=== PATIENT | male | born 1955 | race Caucasian/White ===

== ENCOUNTER 2018-07-18 10:51 | Day surgery (SDC) | payer MEDICARE, BC ==
[~2018-07-18] VITALS: Ht 177.8 cm; Wt 77.3 kg
[2018-07-18] MEDS ORDERED: SODIUM CHLORIDE 0.9% 1,000 ML IV ONE (11:30)
[2018-07-18] MEDS ORDERED: FURO20TA3 PO (11:38)
[2018-07-18] MEDS ORDERED: DILT240C55 PO (11:38)
[2018-07-18] MEDS ORDERED: HYDR-3342 PO (11:38)
[2018-07-18] MEDS ORDERED: CLON0.1T22 PO (11:38)
[2018-07-18] MEDS ORDERED: CHOL400T55 PO (11:38)
[2018-07-18] MEDS ORDERED: OMEG1CAP23 PO (11:38)
[2018-07-18] MEDS ORDERED: ISOS30TA8 PO (11:38)
[2018-07-18] MEDS ORDERED: SEVE800T7 PO (11:38)
[2018-07-18] MEDS ORDERED: FOLI0.8T22 PO (11:38)
[2018-07-18] MEDS ORDERED: CHOL10002 PO (11:38)
[2018-07-18 11:39] VITALS: BP 166/93
[2018-07-18] MEDS ORDERED: PLEASE ENTER HEIGHT AND WEIGHT MC SCH (12:00)
[2018-07-18] MEDS ORDERED: PLEASE ENTER ALLERGIES MC SCH (12:00)
[2018-07-18] MEDS ORDERED: PROPOFOL 10 MG/ML, 20ML ONE (13:30)
== END 2018-07-18 15:00 | disposition home or self-care (01) ==
LOC: CACL 10:51
PROVIDERS: ATTEND Internal Medicine Cardiovascular Disease
DX: I34.0 Nonrheumatic mitral (valve) insufficiency (principal); I35.8 Other nonrheumatic aortic valve disorders; I10 Essential (primary) hypertension
CPT/HCPCS: 93312; 93325; J2704